=== PATIENT | female | born 1995 | race Caucasian/White ===

== ENCOUNTER 2022-05-04 09:09 | Emergency (ER) | payer BC ==
[~2022-05-04] VITALS: Ht 162.6 cm; Wt 82.0 kg
[2022-05-04 09:20] VITALS: BP 123/74
[2022-05-04 11:27] LABS: BASOPHILS % 0.8 % (0.0-2.0); EOSINOPHILS % 0.6 % (0.0-5.0); HEMATOCRIT. 34.9 % (36.0-48.0); HEMOGLOBIN. 11.2 g/dL (12.0-16.0); LYMPHOCYTES % 17.2 % (20.0-50.0); MEAN CORPUSCULAR HEMOGLOBIN 23.7 pg (28.0-32.0); MEAN CORPUSCULAR VOLUME 73.6 fL (81.0-99.0); MEAN PLATELET VOLUME 8.5 fl (7.4-10.4); MONOCYTES % 9.7 % (2.0-8.0); NEUTROPHILS % 71.7 % (40.0-76.0); PLATELET 332 x1000/uL (130-400); RED BLOOD CELL COUNT 4.74 mill/uL (4.2-5.4); RED CELL DISTRIBUTION WIDTH 15.8 % (11.6-14.6)
[2022-05-04 11:42] LABS: CHLORIDE 105 mEq/L (98-107)
[2022-05-04 11:50] LABS: HCG SCREEN NEGATIVE
== END 2022-05-04 19:16 | disposition home or self-care (01) ==
LOC: ER 09:09
DX: R55 Syncope and collapse (principal); R11.0 Nausea; R42 Dizziness and giddiness
CPT/HCPCS: 36415; 80053; 82962; 84703; 85025; 93005; 99284